=== PATIENT | male | born 1960 | race African-American/Black ===

== ENCOUNTER 2023-08-04 12:24 | Emergency (ER) | payer BC ==
[2023-08-04 12:36] VITALS: BP 146/87; PULSE 106; RESP 20; TEMP 100.3; BMI 25.7
[2023-08-04] MEDS ORDERED: KETOROLAC TROMETHAMINE 30 MG/1 ML VIAL IM ONE (12:59)
[2023-08-04] MEDS ORDERED: KETOROLAC TROMETHAMINE 30 MG/1 ML VIAL ONE (13:51)
[2023-08-04] MEDS ORDERED: traMADol HCL 50 MG TABLET PO ONE (14:37)
[2023-08-04] MEDS ORDERED: traMADol HCL 50 MG TABLET ONE (14:41)
== END 2023-08-04 15:07 | disposition home or self-care (01) ==
LOC: JER 12:24
PROC: 3E0233Z Introduction of Anti-inflammatory into Muscle, Percutaneous Approach (ICD-10-PCS; principal; 2023-08-04)
DX: G43.909 Migraine, unspecified, not intractable, without status migrainosus (principal); R09.81 Nasal congestion; R05.9 Cough, unspecified; J10.1 Influenza due to other identified influenza virus with other respiratory manifestations; Z20.822 Contact with and (suspected) exposure to COVID-19
CPT/HCPCS: 0241U-QW; 99284-25